=== PATIENT | male | born 1975 | race American Indian/Alaskan Native ===

== ENCOUNTER 2018-05-24 16:12 | Emergency (ER) | payer OTHER ==
--- NOTE | 2018-05-24 16:37 | Emergency Department Report ---
Blank Doc - Documentation Documentation: This is a 42-year-old male that presents with uncontrollable glucose and penile discharge. Patient stated at from it goes from 140s to low 60s. This initial assessment/diagnostic orders/clinical plan/treatment(s) is/are subject to change based on patient's health status, clinical progression and re- assessment by fellow clinical providers in the ED. Further treatment and workup at subsequent clinical providers discretion. Patient/guardians urged not to elope from the ED as their condition may be serious if not clinically assessed and managed. Initial orders include: 1- Patient sent to [facility] for further evaluation and treatment 2- labs 3- UA 4- G/C
[2018-05-24 16:39] VITALS: BP 118/62
[2018-05-24 17:11] LABS: Basophils # (Auto) 0.1 K/mm3 (0.0-0.1); Basophils % (Auto) 0.7 % (0.0-1.8); Eosinophils # (Auto) 0.4 K/mm3 (0.0-0.4); Eosinophils % (Auto) 3.5 % (0.0-4.3); Hematocrit 38.9 % (35.5-45.6); Hemoglobin 13.1 gm/dl (11.8-15.2); Lymphocytes # (Auto) 3.3 K/mm3 (1.2-5.4); Mean Corpuscular HGB Conc 34 % (32-34); Mean Corpuscular Volume 89 fl (84-94); Monocytes # (Auto) 0.7 K/mm3 (0.0-0.8); Monocytes % (Auto) 6.2 % (0.0-7.3); Platelet Count 231 K/mm3 (140-440); Red Blood Count 4.39 M/mm3 (3.65-5.03); Red Cell Distribution Width 12.9 % (13.2-15.2)
[2018-05-24 17:17] LABS: Alanine Aminotransferase 19 units/L (7-56); Albumin 4.1 g/dL (3.9-5); BUN/Creatinine Ratio 11; Blood Urea Nitrogen 13 mg/dL (9-20); Calcium 9.1 mg/dL (8.4-10.2); Hemolysis Index 5
[2018-05-24 17:32] LABS: Bilirubin,Urine NEG (Negative); Blood,Urine NEG (Negative); Color,Urine Yellow (Yellow); Hyaline Casts,Urine 2 /LPF; Mucus,Urine FEW /HPF
[2018-05-24 17:36] LABS: WBC,Urine > 182.0 /HPF (0.0-6.0)
[2018-05-24] MEDS ORDERED: XYLOCAINE 1% MPF 5 mL INFILTRATI ONE (17:53)
[2018-05-24] MEDS ORDERED: ROCEPHIN IM ONE (17:53)
--- NOTE | 2018-05-24 17:54 | Emergency Department Report ---
ED Male HPI - General Chief complaint: Hyperglycemia Stated complaint: BLOOD SUGAR/POSS INFECTION Time Seen by Provider: 05/24/18 16:35 Source: patient Mode of arrival: Ambulatory Limitations: No Limitations - History of Present Illness Initial comments: Patient is a 42-year-old male that presents emergency room with penile discharge 3 days. Patient states his ex-girlfriend gave him a penile drip. Patient states it brown when he urinates. Patient denies chest pain or shortness of breath. Patient denies abdominal pain. Patient denies testicular pain. Patient also complaining of his diabetes being out of control. Patient states she hasn't seen a doctor for many months. Patient states yesterday his blood sugar was 300. Patient's blood sugar in triage 66. MD Complaint: penile discharge -: Sudden Location: penis Radiation: none Severity: mild Quality: burning Consistency: intermittent Improves with: rest Worsens with: urination new sexual partner discharge, dysuria. denies: swelling, mass, rash, urinary retention, blood in urine, fever, nausea/vomiting, incontinence - Related Data Previous Rx's Medication Instructions Recorded Last Taken Type Azithromycin [Zithromax ORAL PWDR] 2 gm PO ONCE #1 packet 05/24/18 Unknown Rx Ciprofloxacin HCl [Cipro] 500 mg PO Q12HR 10 Days #20 tablet 05/24/18 Unknown Rx Allergies Allergy/AdvReac Type Severity Reaction Status Date / Time aspirin Allergy Hives Verified 05/24/18 16:14 ED Review of Systems ROS: Stated complaint: BLOOD SUGAR/POSS INFECTION Other details as noted in HPI Constitutional: denies: chills, fever Eyes: denies: eye pain, eye discharge, vision change ENT: denies: ear pain, throat pain Respiratory: denies: cough, shortness of breath, wheezing Cardiovascular: denies: chest pain, palpitations Endocrine: no symptoms reported Gastrointestinal: denies: abdominal pain, nausea, diarrhea Genitourinary: dysuria, discharge. denies: urgency Musculoskeletal: denies: back pain, joint swelling, arthralgia Skin: denies: rash, lesions Neurological: denies: headache, weakness, paresthesias Psychiatric: denies: anxiety, depression Hematological/Lymphatic: denies: easy bleeding, easy bruising ED Past Medical Hx - Past Medical History Previous Medical History?: Yes Hx Diabetes: Yes Hx GERD: Yes - Surgical History Past Surgical History?: Yes Additional Surgical History: right wrist/hand/forearm - Family History Family history: no significant - Social History Smoking Status: Current Every Day Smoker Substance Use Type: None - Medications Home Medications: Home Medications Medication Instructions Recorded Confirmed Last Taken Type Azithromycin [Zithromax ORAL PWDR] 2 gm PO ONCE #1 packet 05/24/18 Unknown Rx Ciprofloxacin HCl [Cipro] 500 mg PO Q12HR 10 Days #20 tablet 05/24/18 Unknown Rx ED Physical Exam - General Limitations: No Limitations General appearance: alert, in no apparent distress - Head Head exam: Present: atraumatic, normocephalic - Eye Eye exam: Present: normal appearance, PERRL Pupils: Present: normal accommodation - ENT ENT exam: Present: mucous membranes moist - Neck Neck exam: Present: normal inspection - Respiratory Respiratory exam: Present: normal lung sounds bilaterally. Absent: respiratory distress - Cardiovascular Cardiovascular Exam: Present: regular rate, normal rhythm. Absent: systolic murmur, diastolic murmur, rubs, gallop - GI/Abdominal GI/Abdominal exam: Present: soft, normal bowel sounds - Rectal Rectal exam: Present: deferred - exam: Present: urethral discharge (yellow discharge noted), circumcision. Absent: testicular tenderness, scrotal swelling - Extremities Exam Extremities exam: Present: normal inspection - Back Exam Back exam: Present: normal inspection - Neurological Exam Neurological exam: Present: alert, oriented X3 - Psychiatric Psychiatric exam: Present: normal affect, normal mood - Skin Skin exam: Present: warm, dry, intact, normal color. Absent: rash ED Course Vital Signs 05/24/18 16:36 Temperature 99.2 F Pulse Rate 106 H Respiratory 18 Rate Blood Pressure 118/62 O2 Sat by Pulse 97 Oximetry - Reevaluation(s) Reevaluation #1: Discussed all results the patient. Patient is stable for discharge. Patient will be discharged home. Patient agrees with plan of care. 05/24/18 17:54 ED Medical Decision Making - Lab Data Result diagrams: 05/24/18 16:52 05/24/18 16:52 - Medical Decision Making Patient is a 42-year-old male that presents to emergency with penile discharge and uncontrolled diabetes. Patient's sugars controlled. Patient's labs are unremarkable except for on UA found to have a UTI. Patient will be given STD treatment. Patient will be given ceftriaxone in the ER. Patient will be given antibiotics for chlamydia and a UTI. Patient given discharge instructions. Patient was understanding of all discharge instructions. - Differential Diagnosis UTI. STD. Critical care attestation.: If time is entered above; I have spent that time in minutes in the direct care of this critically ill patient, excluding procedure time. ED Disposition Clinical Impression: Penile discharge, Dysuria Diabetes Qualifiers: Diabetes mellitus type: type 2 Diabetes mellitus rat exterminator insulin use: without rat exterminator use Diabetes mellitus complication status: without complication Qualified Code(s): E11.9 - Type 2 diabetes mellitus without complications UTI (urinary tract infection) Qualifiers: Urinary tract infection type: acute cystitis Hematuria presence: with hematuria Qualified Code(s): N30.01 - Acute cystitis with hematuria Disposition: TO HOME OR SELFCARE Is pt being admited?: No Does the pt Need Aspirin: No Condition: Stable Instructions: Chlamydia Infection (ED), Sexually Transmitted Diseases (ED), Safe Sex (ED), Urinary Tract Infection in Men (ED), Diabetes Mellitus Type 2 in Adults (ED), Dysuria (ED) Additional Instructions: Patient to follow up with primary care in 2-3 days. Patient to return to ER con dition worsens. Patient to increase water. Patient to rest. Patient to avoid sex. Patient to have partners be treated. Patient to take azithromycin today and start Cipro tomorrow Prescriptions: Ciprofloxacin HCl [Cipro] 500 mg PO Q12HR 10 Days #20 tablet Azithromycin [Zithromax ORAL PWDR] 2 gm PO ONCE #1 packet Referrals: RIKY GUNTER MD [Primary Care Provider] - 2-3 Days Time of Disposition: 18:00
== END 2018-05-24 18:26 | disposition home or self-care (01) ==
LOC: ED 16:12
DX: N39.0 Urinary tract infection, site not specified (principal); E11.9 Type 2 diabetes mellitus without complications; K21.9 Gastro-esophageal reflux disease without esophagitis; F17.200 Nicotine dependence, unspecified, uncomplicated; Z88.6 Allergy status to analgesic agent
CPT/HCPCS: 36415; 80053; 81001; 82805; 82962; 85025; 87591; 96372; 99283; J0696

== ENCOUNTER 2021-10-20 17:40 | Emergency (ER) | payer SELFPAY ==
[2021-10-21] MEDS ORDERED: SODIUM CHLORIDE 0.9% 1000 ML 2,000 ML IV ONE (00:25)
[2021-10-21 01:05] LABS: Basophils # (Auto) 0.1 K/mm3 (0.0-0.1); Basophils % (Auto) 0.7 % (0.0-1.8); Eosinophils # (Auto) 0.2 K/mm3 (0.0-0.4); Eosinophils % (Auto) 2.1 % (0.0-4.3); Hematocrit 35.2 % (35.5-45.6); Hemoglobin 11.7 gm/dl (11.8-15.2); Lymphocytes # (Auto) 2.8 K/mm3 (1.2-5.4); Lymphocytes % (Auto) 32.3 % (13.4-35.0); Mean Corpuscular HGB Conc 33 % (32-34); Mean Corpuscular Volume 90 fl (84-94); Monocytes # (Auto) 0.4 K/mm3 (0.0-0.8); Monocytes % (Auto) 4.7 % (0.0-7.3); Platelet Count 217 K/mm3 (140-440); Red Blood Count 3.92 M/mm3 (3.65-5.03); Red Cell Distribution Width 13.9 % (13.2-15.2)
[2021-10-21 01:23] LABS: Creatine Kinase MB 1.7 ng/mL (0.0-4.0)
[2021-10-21 01:27] LABS: Alanine Aminotransferase 25 units/L (7-56); Albumin 3.8 g/dL (3.9-5); BUN/Creatinine Ratio 21; Blood Urea Nitrogen 25 mg/dL (9-20); Calcium 8.9 mg/dL (8.4-10.2); Hemolysis Index 11
[2021-10-21] MEDS ORDERED: INSULIN REGULAR, HUMAN 100 UNITS/1 ML IV ONE (01:47)
--- NOTE | 2021-10-21 02:11 | XRay Report ---
XR chest 1V ap INDICATION / CLINICAL INFORMATION: Dyspnea. COMPARISON: None available. FINDINGS: SUPPORT DEVICES: None. HEART /PULMONARY VASCULATURE: No significant abnormality. LUNGS / PLEURA: No significant pulmonary or pleural abnormality. No pneumothorax. ADDITIONAL FINDINGS: No significant additional findings. IMPRESSION: 1. No acute findings. Signer Name: Dylon Gayle MD Signed: 10/21/2021 2:06 AM Workstation Name: [id number]
--- NOTE | 2021-10-21 05:38 | Emergency Department Report ---
ED General Adult HPI - General Chief complaint: Hyperglycemia Stated complaint: CAN'T CONTROL SUGAR PUI?: No Time Seen by Provider: 10/21/21 00:22 Source: patient Mode of arrival: Ambulatory Limitations: No Limitations - History of Present Illness Initial comments: high blood sugar for the last few days, doesn't know why , he is a awake no abdominal pain no nausea or vomiting -: Gradual, days(s) Worsens with: none Associated Symptoms: denies: denies other symptoms, chest pain, cough, diaphoresis, loss of appetite, malaise, nausea/vomiting Treatments Prior to Arrival: none - Related Data Previous Rx's Medication Instructions Recorded Last Taken Type Azithromycin [Zithromax ORAL PWDR] 2 gm PO ONCE #1 packet 05/24/18 Unknown Rx Ciprofloxacin HCl [Cipro] 500 mg PO Q12HR 10 Days #20 tablet 05/24/18 Unknown Rx Allergies Allergy/AdvReac Type Severity Reaction Status Date / Time aspirin Allergy Hives Verified 10/20/21 18:36 ED Review of Systems ROS: Stated complaint: CAN'T CONTROL SUGAR Other details as noted in HPI Constitutional: denies: chills, fever Eyes: denies: eye pain, eye discharge, vision change ENT: denies: ear pain, throat pain Respiratory: denies: cough, shortness of breath, wheezing Cardiovascular: denies: chest pain, palpitations Endocrine: no symptoms reported Gastrointestinal: denies: abdominal pain, nausea, diarrhea Genitourinary: denies: urgency, dysuria Musculoskeletal: denies: back pain, joint swelling, arthralgia Skin: denies: rash, lesions Neurological: denies: headache, weakness, paresthesias Psychiatric: denies: anxiety, depression Hematological/Lymphatic: denies: easy bleeding, easy bruising ED Past Medical Hx - Past Medical History Previous Medical History?: Yes Hx Diabetes: Yes Hx GERD: Yes - Surgical History Past Surgical History?: Yes Additional Surgical History: right wrist/hand/forearm - Social History Smoking Status: Unknown if ever smoked - Medications Home Medications: Home Medications Medication Instructions Recorded Confirmed Last Taken Type Azithromycin [Zithromax ORAL PWDR] 2 gm PO ONCE #1 packet 05/24/18 Unknown Rx Ciprofloxacin HCl [Cipro] 500 mg PO Q12HR 10 Days #20 tablet 05/24/18 Unknown Rx ED Physical Exam - General Limitations: No Limitations General appearance: alert, in no apparent distress - Head Head exam: Present: atraumatic, normocephalic - Eye Eye exam: Present: normal appearance - ENT ENT exam: Present: mucous membranes moist - Neck Neck exam: Present: normal inspection - Respiratory Respiratory exam: Present: normal lung sounds bilaterally. Absent: respiratory distress - Cardiovascular Cardiovascular Exam: Present: regular rate, normal rhythm. Absent: systolic murmur, diastolic murmur, rubs, gallop - GI/Abdominal GI/Abdominal exam: Present: soft, normal bowel sounds - Rectal Rectal exam: Present: deferred - Extremities Exam Extremities exam: Present: normal inspection - Back Exam Back exam: Present: normal inspection - Neurological Exam Neurological exam: Present: alert, oriented X3 - Psychiatric Psychiatric exam: Present: normal affect, normal mood - Skin Skin exam: Present: warm, dry, intact, normal color. Absent: rash ED Course Vital Signs 10/20/21 10/21/21 10/21/21 18:33 00:27 00:30 Temperature 98.8 F Pulse Rate 98 H Respiratory 18 Rate Blood Pressure Blood Pressure 112/65 [Left] O2 Sat by Pulse 96 98 97 Oximetry 10/21/21 10/21/21 10/21/21 00:31 01:01 01:31 Temperature Pulse Rate 95 H 96 H 96 H Respiratory 19 18 17 Rate Blood Pressure 143/72 111/55 142/75 Blood Pressure [Left] O2 Sat by Pulse 98 98 98 Oximetry 10/21/21 02:01 Temperature Pulse Rate 93 H Respiratory 17 Rate Blood Pressure 140/72 Blood Pressure [Left] O2 Sat by Pulse 97 Oximetry ED Medical Decision Making - Lab Data Result diagrams: 10/21/21 00:42 10/21/21 00:42 - Radiology Data Radiology results: report reviewed, image reviewed - Medical Decision Making work up shwoed hyperglycemia with no gap or acidosis, mild ketosis, fluids givenand insulin 15 units , BS down to 300s Critical care attestation.: If time is entered above; I have spent that time in minutes in the direct care of this critically ill patient, excluding procedure time. ED Disposition Clinical Impression: Hyperglycemia Disposition: 01 HOME / SELF CARE / HOMELESS Is pt being admited?: No Does the pt Need Aspirin: No Condition: Stable Instructions: Hyperglycemia, [id number], Hyperglycemia Referrals: PRIMARY CARE, [Primary Care Provider] - 3-5 Days
[2021-10-21 05:52] VITALS: BP 145/94
== END 2021-10-21 05:53 | disposition home or self-care (01) ==
LOC: ED 17:40
DX: E11.65 Type 2 diabetes mellitus with hyperglycemia (principal)
CPT/HCPCS: 36415; 71045; 80053; 82010; 82550; 82553; 82962; 84484; 85025; 86140; 96361; 96374; 99284; J7030; Q9967; J1815